=== PATIENT | female | born 1995 | race Caucasian/White ===

== ENCOUNTER 2017-10-25 11:16 | Emergency (ER) | payer OTHER ==
[~2017-10-25] VITALS: Ht 170.2 cm; Wt 125.4 kg
[~2017-10-25 11:16] MED LIST: ALBU6.7H INH
[2017-10-25 11:33] VITALS: BP 169/72; PULSE 94; RESP 18; TEMP 99; O2SAT 95
[2017-10-25] MEDS ORDERED: ZITHTAB PO (11:45)
[2017-10-25] MEDS ORDERED: BENZ1CAP51 PO (11:45)
[2017-10-25] MEDS ORDERED: PRED20 PO (11:45)
[2017-10-25] MEDS ORDERED: predniSONE 20 MG TAB PO ONE (11:45)
[2017-10-25] MEDS ORDERED: VENTAER INH (11:45)
--- NOTE | 2017-10-25 11:46 | PD ---
HPI Chief Complaint: Cold / Flu Symptoms Time Seen by Provider: 11:37 Travel History International Travel<30 days: No Contact w/Intl Traveler<30days: No Traveled to known affect area: No History of Present Illness HPI 21-year-old female presents to the emergency department for evaluation of cold symptoms that started 4 days ago. She reports has history of PCOS and asthma. Patient denies any fevers. No abdominal pain. No vomiting. She reports muscle pain from coughing, currently 5/10, aching without radiation. Moderate severity. PFSH Past Medical History Respiratory: Yes (asthma) ?: Not LMP: has PCOS no menses Social History Alcohol Use: Yes (OCCASIONALLY) Tobacco Use: Yes (<1 PPD) Substance Use: No Allergies-Medications (Allergen,Severity, Reaction): Coded Allergies: No Known Allergies (Unverified Adverse Reaction, Unknown, 10/25/17) Reported Meds & Prescriptions Reported Meds & Active Scripts Active Proventil Hfa (Albuterol Sulfate) 6.7 Gm Aero 2 Puff INH Q4 PRN * SHAKE WELL BEFORE USE * Review of Systems Except as stated in HPI: all other systems reviewed are Neg Physical Exam Narrative GENERAL: Well-nourished, well-developed female patient, ambulatory. Afebrile. SKIN: Focused skin assessment warm/dry. HEAD: Normocephalic. Atraumatic. ENT: Mucosa pink and moist. No erythema or exudates. No uvular edema. No uvular , palatal, or tonsillar deviation. Airway patent. Nasal turbinates appear normal without nasal blood, purulent drainage or septal hematoma. Bilateral tympanic membranes clear without erythema or perforation. EYES: No scleral icterus. No injection or drainage. NECK: Supple, trachea midline. No JVD or lymphadenopathy. CARDIOVASCULAR: Regular rate and rhythm without murmurs, gallops, or rubs. RESPIRATORY: Breath sounds equal bilaterally. No accessory muscle use. Lung sounds clear to auscultation. No increased work of breathing. Dry cough noted. GASTROINTESTINAL: Abdomen soft, non-tender, nondistended. MUSCULOSKELETAL: No cyanosis, or edema. BACK: Nontender without obvious deformity. No CVA tenderness. Data Data Last Documented VS Vital Signs Date Time Temp Pulse Resp B/P (MAP) Pulse Ox O2 Delivery O2 Flow Rate FiO2 10/25/17 11:33 99.0 94 18 169/72 (104) 95 Orders Orders Prednisone (Deltasone) (10/25/17 11:45) MDM Medical Decision Making Medical Screen Exam Complete: Yes Emergency Medical Condition: Yes Medical Record Reviewed: Yes Differential Diagnosis Asthma exacerbation versus URI versus bronchitis versus pneumonia Narrative Course 21-year-old female presents to the emergency department for evaluation of cold symptoms for 4 days. She does have dry cough noted on exam with history of asthma. Patient is given prednisone 40 mg p.o. She will be discharged prescription for prednisone, azithromycin, albuterol inhaler, benzonatate capsules. She is encouraged to follow the primary care physician. She is return here for any acute worsening of symptoms. The patient was discharged in stable condition with instructions, including return instructions and follow up instructions. Diagnosis Primary Impression: URI (upper respiratory infection) Qualified Codes: J06.9 - Acute upper respiratory infection, unspecified Referrals: Primary Care Physician call for appointment Patient Instructions: General Instructions, Upper Respiratory Infection (ED) Departure Forms: Tests/Procedures, Work Release Enter return to work date: October 28, 2017 Additional Instructions: Take prednisone as directed. Start this tomorrow. Use albuterol inhaler as directed as needed for shortness of breath/wheezing. Take antibiotic as directed until gone. Use benzonatate capsules as directed as needed for cough. Follow-up with a primary care physician. Return to the emergency department for any acute worsening of symptoms. Med/Other Pt SpecificInfo: Prescription(s) given Scripts Benzonatate (Benzonatate) 200 Mg Cap 200 MG PO TID Y for COUGH, #21 CAP 0 Refills Prov: Maddie Zarate 10/25/17 Azithromycin (Zithromax Z-Samuel) 250 Mg Dspk 250 MG PO DIRECTED for Infection, #1 DSPK 0 Refills 500 MG (2 tabs) day 1, then 1 tab days 2-5. Prov: Maddie Zarate 10/25/17 Albuterol 18 GM Inh (Ventolin Hfa 18 GM Inh) 90 Mcg/Act Aer 1 PUFF INH Q4H Y for SHORTNESS OF BREATH, #1 INHALER 0 Refills Prov: Maddie Zarate 10/25/17 Prednisone (Prednisone) 20 Mg Tab 40 MG PO DAILY for 4 Days, #8 TAB 0 Refills Take 40 mg (2 tablets) daily for 5 days Prov: Maddie Zarate 10/25/17 Disposition: 01 DISCHARGE HOME Condition: Stable Maddie Zarate Oct 25, 2017 11:46
== END 2017-10-25 12:00 | disposition home or self-care (01) ==
LOC: PHEFT 11:16
DX: J06.9 Acute upper respiratory infection, unspecified (principal); J45.909 Unspecified asthma, uncomplicated; E28.2 Polycystic ovarian syndrome; F17.200 Nicotine dependence, unspecified, uncomplicated; Z79.51 Long term (current) use of inhaled steroids
CPT/HCPCS: 99283; J7512